=== PATIENT | female | born 1995 | race Caucasian/White ===

== ENCOUNTER 2019-09-05 21:32 | Emergency (ER) | payer SELFPAY ==
[~2019-09-05] VITALS: Ht 160 cm; Wt 63.5 kg
[2019-09-05] MEDS ORDERED: TRAZ-182 PO (21:46)
[2019-09-05] MEDS ORDERED: ONDA4TAB5 PO (21:46)
[2019-09-05] MEDS ORDERED: ROPI0.5T PO (21:46)
[2019-09-05] MEDS ORDERED: CLON0.1T PO (21:46)
[2019-09-05] MEDS ORDERED: BUPR1FIL23 SL (21:46)
[2019-09-05] MEDS ORDERED: LORA-259 PO (21:46)
--- NOTE | 2019-09-05 22:27 | NUR ---
NOT FOUND, CALLED 3 TIMES AND NO ANSWER. PT LEFT WITHOUT BEING SEEN PER MD
== END 2019-09-05 22:27 | disposition left against medical advice (07) ==
LOC: ER 21:34
DX: Z53.21 Procedure and treatment not carried out due to patient leaving prior to being seen by health care provider (principal)
CPT/HCPCS: A4663